=== PATIENT | female | born 1970 | race Caucasian/White ===

== ENCOUNTER 2024-12-04 10:29 | Emergency (ER) | payer OTHER, SELFPAY ==
[2024-12-04] VITALS (7 sets, daily range): BP systolic 107–138; BP diastolic 69–85
--- NOTE | 2024-12-04 11:57 | ED.GENMED ---
History of Present Illness
<MIKAYLA Rojas - Last Filed: 12/04/24 16:55>
General
Chief Complaint: Chest Pain
Source: patient
Exam Limitations: none
Time Seen by Provider: 12/04/24 11:41
Nursing documentation reviewed up to this point in time: agreed with
History of Present Illness
History of Present Illness:
54 yr old female with past medical history of none obstructive (vasospasm PR ) presents to the ER for evaluation. She reports for the past 1 week she has had intermittent left-sided chest discomfort. She reports it has been lasting for seconds at
a time. She has had no radiation of pain no nausea vomiting diaphoresis. It resolves on its own. Today however it has been constant since 830 this morning. She reports pain is again of the left side of her chest but she describes this as '
feeling hot sensation .' She does feel some discomfort in left arm
She has not taken anything for pain.
This does not feel similar to when she had her PR in the past. She reports pain is not made worse with deep breath. She denies any recent illness fever chills. She denies any reflux history.
She is followed with cardiology Dr. Torres here.
Past History
<MIKAYLA Rojas - Last Filed: 12/04/24 16:55>
Past History
ED Past Medical History: None
ED Past Surgical History: None
Review of Systems
<MIKAYLA Rojas - Last Filed: 12/04/24 16:55>
Review of Systems
Allergies reviewed?: Yes
All Other Systems: ROS reviewed and negative except as documented in HPI and ROS
Constitutional: Reports no symptoms; Denies fever, fatigue or chills
EENT: Reports no symptoms
Respiratory: Reports no symptoms
Cardiac: Reports chest pain; Denies diaphoresis, palpitations or syncope
ABD/GI: Reports no symptoms
: Reports no symptoms
Musculoskeletal: Reports no symptoms
Skin: Reports no symptoms
Neurological: Reports no symptoms
Psychiatric: Reports no symptoms
Phy Exam
<MIKAYLA Rojas - Last Filed: 12/04/24 16:55>
General Physical Exam
General Presentation: no apparent distress
General age: appears stated age
General Skin: warm and dry
General Habitus: normal
General Mental: alert
General Hydration: appears well hydrated
Cardiovascular Exam
Cardiovascular Exam: regular rate/rhythm, no murmur and normal peripheral pulses
Pulmonary Exam
Pulmonary Exam: lungs clear and no respiratory distress
Neurological Exam
Neurological Exam: alert and oriented x3
Musculoskeletal Exam
Musculoskeletal Exam: full ROM
Skin Exam
Skin Exam: normal color and warm/dry
Psychiatric Exam
Psychiatric Exam: normal mood/affect
Scores
<MIKAYLA Rojas - Last Filed: 12/04/24 16:55>
Heart Score for Chest Pain Patients
STEMI patient?: Not applicable
Course
<MIKAYLA Rojas - Last Filed: 12/04/24 16:55>
Orders/Labs/Results
Orders:
Orders
12/04/24 10:30
Electrocardiogram (*1) Urgent
Reason for Study: Chest Pain
EKG- Treatment ONCE
12/04/24 11:58
Cardiac Monitoring- Treatment ONCE
Chest [CR Chest - 2 Views ] Urgent
Comment:
Reason For Exam: cp
12/04/24 12:07
Ketorolac [Toradol] 15 mg IV NOW STA
12/04/24 12:22
Complete Blood Count/With Diff Urgent
Comprehensive Metabolic Panel Urgent
Troponin I Urgent
12/04/24 13:24
CT Chest Angio W/wo Iv Contras Urgent
Comment:
Reason For Exam: left chest
12/04/24 15:25
Troponin I Urgent
12/04/24 15:26
Electrocardiogram (*1) Urgent
Reason for Study: Chest Pain
EKG- Treatment ONCE
12/04/24 12:22
12/04/24 12:22
Vital Signs
Initial and Last Documented VS:
Initial Vital Signs
Temp Pulse Resp BP Pulse Ox
98.4 F 71 16 138/85 98
12/04/24 10:34 12/04/24 10:34 12/04/24 10:34 12/04/24 10:34 12/04/24 10:34
Last Documented Vital Signs
Temp Pulse Resp BP Pulse Ox
98.4 F 60 18 107/69 100
12/04/24 10:34 12/04/24 15:15 12/04/24 15:15 12/04/24 15:00 12/04/24 13:15
Building Service Worker consulted with Physician
Building Service Worker consulted with physician?: Yes
Name of Physician Consulted: Andrae
<Eli Abebe, DO - Last Filed: 12/04/24 13:39>
Orders/Labs/Results
Orders:
Orders
12/04/24 10:30
Electrocardiogram (*1) Urgent
Reason for Study: Chest Pain
EKG- Treatment ONCE
12/04/24 11:58
Cardiac Monitoring- Treatment ONCE
Chest [CR Chest - 2 Views ] Urgent
Comment:
Reason For Exam: cp
12/04/24 12:07
Ketorolac [Toradol] 15 mg IV NOW STA
12/04/24 12:22
Complete Blood Count/With Diff Urgent
Comprehensive Metabolic Panel Urgent
Troponin I Urgent
12/04/24 13:24
CT Chest Angio W/wo Iv Contras Urgent
Comment:
Reason For Exam: left chest
12/04/24 15:25
Troponin I Urgent
12/04/24 15:26
Electrocardiogram (*1) Urgent
Reason for Study: Chest Pain
EKG- Treatment ONCE
12/04/24 12:22
12/04/24 12:22
Vital Signs
Initial and Last Documented VS:
Initial Vital Signs
Temp Pulse Resp BP Pulse Ox
98.4 F 71 16 138/85 98
12/04/24 10:34 12/04/24 10:34 12/04/24 10:34 12/04/24 10:34 12/04/24 10:34
Last Documented Vital Signs
Temp Pulse Resp BP Pulse Ox
98.4 F 60 18 107/69 100
12/04/24 10:34 12/04/24 15:15 12/04/24 15:15 12/04/24 15:00 12/04/24 13:15
<MIKAYLA Rojas - Last Filed: 12/04/24 16:55>
MDM/Problems Addressed
MDM/Problems Addressed:
As documented patient is a 54-year-old female with history of vasoconstrictive PR presented to the ER for evaluation of chest pain patient. She reports intermittently for the past week she has had episodes of chest pain which last for seconds at a
time however today she had persistent discomfort which she described as burning which prompted patient to come to the ER.
She reports that this is different than her previous PR. Patient had 1 negative cardiac troponin here however on reeval patient still complained of discomfort repeat troponin done as well as CTA which was negative no concerning findings during
workup here in the ER.
She denies any fevers and has no rash on exam no clear cause for patient's symptoms however nothing acute and stable for discharge home with close outpatient with cardiology/PCP
Chronic conditions affecting care:
Previous vasoconstrictive PR hyperlipidemia
<MIKAYLA Rojas - Last Filed: 12/04/24 16:55>
*Pulse Oximetry
Patient hypoxic: no
*Critical Care Note
Total Time (30-74mins, 75-104mins- exclusive of procedures): Not Applicable
ED Attending Note
<MIKAYLA Rojas - Last Filed: 12/04/24 16:55>
-
Portions of this chart may have been created with voice recognition software.� Occasional wrong word or��sound alike� substitutions may have occurred due to the inherent limitations of voice recognition software.
<Eli Abebe DO - Last Filed: 12/04/24 13:39>
ED Attending Note
Patient seen and examined by attending physician: Yes
I performed the substantive portion of visit, reviewed & personally made and approve the management plan that is documented in note by myself or ASUTIN.: Yes
I performed a history and physical exam of patient and discussed management with resident, I reviewed resident's note and agree with documented findings and plan of care.: Yes
ED Attending Note:
54-year-old female with history of hypertension, coronary vasospasm presenting to the emergency department for chest discomfort. Patient reports symptoms on and off for the past week, however became more persistent in the past 2 days. Pain is
described as burning, left chest and going to her back. Reports that symptoms feel different than her prior cardiac event. Denies any history of indigestion. Denies difficulty breathing. Denies any history of PE, exogenous estrogen, recent
surgery or travel. Vitals on arrival are normal.
On exam, patient is resting comfortably, no acute distress. EKG obtained, without significant acute ischemic abnormality or significant change from prior. Unremarkable cardiac and pulmonary exam. Patient had initial workup with laboratory
analysis including troponin. Initial troponin is negative, however patient continues to express discomfort in her chest. For this reason we will obtain second troponin. Patient notes that pain is radiating to her back. For this reason we will
obtain CT chest imaging as well to evaluate for aortic or pulmonary pathology. Patient otherwise hemodynamically stable.
Discharge Plan
Departure
Patient Disposition: Home (Routine Discharge)
Date of Disposition: 12/04/24
Time of Disposition: 16:53
Patient with high blood pressure during this ER visit?: Yes
Covid-19: Not Applicable
Discharge Problem:
Chest pain
Instructions: Chest Pain DCA Follow Up, BLOOD PRESSURE
Prescriptions:
No Action
prenat.vits,loly,jym-gxoi-zhtoz [ Vitamin] 1 TAB tablet
1 tab PO
Referrals:
Angeles Fatima PA-C [Family Provider] -
Sumanth Robles MD [Active] -
Activity Restrictions/Additional Instructions:
As discussed please follow-up with cardiology you should receive a phone call from the office in the next 4 days if you do not please give them a call. You may take ibuprofen for discomfort or alternate with Tylenol. In addition please follow
with your family doctor.
Interventions
Interventions:
*Risk Screen - Suicide Last Done: 12/04/24 10:34
*General Assessment Last Done: 12/04/24 12:28
*Neglect/Abuse Screening Last Done: 12/04/24 10:34
*ED- Fall Risk Assessment Last Done: 12/04/24 12:28
ED- Cardiac Assessment Last Done: 12/04/24 12:27
Discharge Date and Time
Print Language: AZERI
[2024-12-04] MEDS: TORADOL 15 MG IV (12:22)
[2024-12-04 12:32] LABS: % Basophils 0.5 % (0-2); % Eosinophils 0.7 % (0-6); % Immature Granulocytes 0.1 % (0-0.5); % Lymphocytes 21.8 % (20.5-51.1); % Monocytes 4.3 % (1.7-9.3); % Neutrophils 72.6 % (42.2-75.2); Absolute Eosinophils 0.1 10^3/uL (0-0.7); Absolute Lymphocytes 1.6 10^3/uL (1.2-3.4); Absolute Monocytes 0.3 10^3/uL (0.1-0.6); Absolute Neutrophils 5.5 10^3/uL (1.4-6.5); Hematocrit 39.5 % (37.0-47.0); Hemoglobin 13.2 g/dL (12.0-16.0); Mean Corp Hgb Conc. 33.4 g/dL (33.0-37.0); Mean Corpuscular Hgb 30.2 pg (27.0-31.0); Mean Corpuscular Volume 90.4 fL (81.0-99.0); Mean Platelet Volume 9.6 fL (7.4-10.4); Nucleated Red Blood Cells % 0 %; Platelet Count 271 10^3/uL (130-400); Red Blood Cell Count 4.37 10^6/uL (4.20-5.40); Red Cell Dist. Width 13.2 % (11.5-14.5); White Blood Cell Count 7.5 10^3/uL (4.8-10.8)
[2024-12-04 12:45] LABS: ALT (SGPT) 22 U/L (0-35); AST (SGOT) 26 U/L (14-36); Albumin 4.6 g/dl (3.5-5.0); Alkaline Phosphatase 59 U/L (38-126); Blood Urea Nitrogen 15 mg/dl (7-17); Calcium 9.9 mg/dl (8.4-10.2); Carbon Dioxide 29 mmol/L (22-30); Chloride 105 mmol/L (98-107); Glucose 96 mg/dl (70-99); Sodium 141 mmol/L (135-145); Total Bilirubin 1.1 mg/dl (0.2-1.3); Total Protein 7.3 g/dl (6.3-8.2); eGFR > 60.00
[2024-12-04 12:59] LABS: Troponin I < 0.012 ng/ml
[2024-12-04 15:54] LABS: Troponin I < 0.012 ng/ml
== END 2024-12-04 17:35 | disposition home or self-care (01) ==
LOC: EMR 10:29
PROVIDERS: Nurse Practitioner; EMERGENCY PHYSICIAN Student in an Organized Health Care Education/Training Program; FAMILY PHYSICIAN Student in an Organized Health Care Education/Training Program
DX: R07.89 Other chest pain (principal); I25.2 Old myocardial infarction; E78.5 Hyperlipidemia, unspecified; I10 Essential (primary) hypertension
CPT/HCPCS: 99285; 96374; 71046; 71275; 80053; 84484; 85025; 93005; Q9967

== ENCOUNTER → 2024-12-09 09:52 | Outpatient (REF) | payer OTHER, SELFPAY | LOC: HWRAD 09:52 | PROVIDERS: ATTENDING PHYSICIAN Student in an Organized Health Care Education/Training Program | DX: E04.9 Nontoxic goiter, unspecified (principal) | CPT/HCPCS: 76536 ==

== ENCOUNTER 2024-12-18 01:20 | Observation (INO) | payer OTHER, SELFPAY ==
[2024-12-17] VITALS (7 sets, daily range): BP systolic 110–139; BP diastolic 73–87; BMI 23.7
[2024-12-17 16:08] LABS: Urine Albumin 1+ (Neg - Trace); Urine Bilirubin Negative (Negative); Urine Character Clear (Clear); Urine Color Yellow; Urine Glucose Negative (Negative); Urine Ketone Negative (Negative); Urine Leukocyte 1+ (Negative); Urine Nitrite Negative (Negative); Urine Occult Blood 4+ (Negative); Urine Urobilinogen Negative (Neg - 1+)
[2024-12-17 16:27] LABS: Urine Bacteria Few (Negative); Urine Mucus Few; Urine Squamous Cell 0-2 /LPF (Few)
[2024-12-17 19:41] LABS: % Basophils 0.6 % (0-2); % Eosinophils 2.7 % (0-6); % Immature Granulocytes 0.2 % (0-0.5); % Lymphocytes 39.1 % (20.5-51.1); % Monocytes 7.2 % (1.7-9.3); % Neutrophils 50.2 % (42.2-75.2); Absolute Eosinophils 0.2 10^3/uL (0-0.7); Absolute Lymphocytes 2.6 10^3/uL (1.2-3.4); Absolute Monocytes 0.5 10^3/uL (0.1-0.6); Absolute Neutrophils 3.3 10^3/uL (1.4-6.5); Hematocrit 37.2 % (37.0-47.0); Hemoglobin 12.8 g/dL (12.0-16.0); Mean Corp Hgb Conc. 34.4 g/dL (33.0-37.0); Mean Corpuscular Hgb 30.7 pg (27.0-31.0); Mean Corpuscular Volume 89.2 fL (81.0-99.0); Mean Platelet Volume 9.5 fL (7.4-10.4); Nucleated Red Blood Cells % 0 %; Platelet Count 234 10^3/uL (130-400); Red Blood Cell Count 4.17 10^6/uL (4.20-5.40); Red Cell Dist. Width 13.3 % (11.5-14.5); White Blood Cell Count 6.6 10^3/uL (4.8-10.8)
[2024-12-17 19:56] LABS: ALT (SGPT) 15 U/L (0-35); AST (SGOT) 18 U/L (14-36); Alkaline Phosphatase 54 U/L (38-126); Blood Urea Nitrogen 23 mg/dl (7-17); Calcium 9.2 mg/dl (8.4-10.2); Carbon Dioxide 28 mmol/L (22-30); Chloride 106 mmol/L (98-107); Estimated Creatinine Clearance 89 ml/min; Glucose 104 mg/dl (70-99); Lipase 115 U/L (23-300); Potassium 3.8 mmol/L (3.5-5.1); Sodium 139 mmol/L (135-145); Total Bilirubin 0.4 mg/dl (0.2-1.3); Total Protein 6.4 g/dl (6.3-8.2); eGFR > 60.00
[2024-12-17 20:08] LABS: Troponin I < 0.012 ng/ml
[2024-12-17 20:12] LABS: HCG, Serum Qualitative Screen Positive
--- NOTE | 2024-12-17 20:20 | ED.GENMED ---
History of Present Illness
General
Chief Complaint: Fatigue
Source: patient
Time Seen by Provider: 12/17/24 20:06
History of Present Illness
History of Present Illness:
54-year-old female who is postmenopausal presents to the emergency room complaining of paresthesias involving her right side. Patient developed these symptoms last evening while laying in bed. She has a sensation like the right arm and leg are
'going to sleep'. She has normal strength and is able to perform all her daily activities. She denies any headache. She denies any recent fever, chills, nausea or vomiting. Symptoms have been pretty constant since onset. She did recently take a
course of prednisone prescribed her primary care doctor. This was prescribed because she was having intermittent chest discomfort and there was the thought she might be having an inflammatory process. She has completed the prednisone.
Past History
Past History
ED Past Medical History: None
ED Past Surgical History: None
Phy Exam
Physical Exam
Physical Exam:
General: Awake, Alert, Oriented X3. No acute distress.
Vitals: unremarkable
Head: Atraumatic
Eyes: Pupils equal, EOMI
Throat: Airway intact, no exudates
Neck: Trachea midline
Lungs: Clear and equal b/l
Heart: Regular rate, no murmurs
Abd: Soft, Nontender, No pulsatile mass
Neuro: Cranial nerves intact, muscle strength equal bilaterally, cerebellar exam normal, reflexes 1/4 throughout
Skin: Warm, dry, no rash
Extremities: pulses equal b/l, no edema
Course
Orders/Labs/Results
Orders:
Orders
12/17/24 15:52
Electrocardiogram (*1) Urgent
Reason for Study: Chest Pain
EKG- Treatment ONCE
Test Result ONCE
12/17/24 15:59
Urinalysis Reflex To Culture Urgent
Date Specimen was Collected: 12/17/24
Time Specimen was Collected: 15:52
Urine Microscopic Reflex Cult Urgent
Urine Culture Urgent
TIRSO Source: U
Specimen Description:
Date Specimen was Collected: 12/17/24
Time Specimen was Collected: 15:52
12/17/24 19:31
Beta HCG Quantitative Urgent
Comment: ADD ON
Complete Blood Count/With Diff Urgent
Comprehensive Metabolic Panel Urgent
HCG, Serum Qualitative Screen Urgent
Comment: Notify provider if positive test present
Lipase Urgent
Lyme Progressive Urgent
Date Specimen was Collected: 12/17/24
Time Specimen was Collected: 15:52
Comment: ADDON
Troponin I Urgent
12/17/24 20:19
Add On- LAB Urgent
Tests Added?: hcg quantitative
12/17/24 20:20
CT Head W/o Iv Contrast Urgent
Comment:
Reason For Exam: right sided paresthesia
12/17/24 20:21
Add On- LAB Urgent
Tests Added?: lyme progressive
12/17/24 22:59
Admit/Transfer Patient As Directed
Co-Sign Provider:
Level of Care: Observation services
Assign to:: Telemetry
Physician / Group: maura
Diagnosis: TIA
Reason for Telemetry: CVA/TIA
Date to Stop Telemetry: 12/20/24
Time to Stop Telemetry: 11:00
PRN Pain Medication Management As Directed
May give lesser potent ordered pain med per pt: Yes
preference::
Protocol:: Medication orders for pain may be administered in a
manner that supports deferring to patient preference
when the pt is:
- Requesting an ordered lesser potent pain medication.
Least to most potent pain medications are defined
as: acetaminophen < NSAID < tramadol < opioids
(morphine, oxycodone, hydromorphone).
- Requesting a lesser dose of the same medication IF
ORDERED.
- Requesting a less intrusive route of administration
if both routes are prescribed by the provider (PO <
IV).
12/17/24 23:00
Code Status As Directed
Resuscitation Status: Full Code
Flush (0.9% Sodium Chloride) [Flush (Nss)] See Dose Instructions IV PER PROTOCOL
12/17/24 23:05
Aspirin Chewable [Low Strength Aspirin] 324 mg PO NOW STA
Clopidogrel Bisulfate [Plavix] 75 mg PO NOW STA
12/17/24 23:20
MR Brain Without Contrast Routine
Comment:
Reason For Exam: paresthisas
Recent pill cam endoscopy?: No
12/18/24 01:22
Troponin I Q6H
12/18/24 07:30
Troponin I Q6H
12/20/24 11:00
DC Protocol for Telemetry ONCE
Abnormal Lab Results
12/17/24 12/17/24
15:59 19:31
RBC 4.17 L 10^6/uL
(4.20-5.40)
BUN 23 H mg/dl
(7-17)
Glucose 104 H mg/dl
(70-99)
Ur Occult Blood Reflex 4+ A
(Negative)
Leukocyte Esterase Rfl 1+ A
(Negative)
Urine RBC 11-15 A /HPF
(0-2)
Urine Bacteria (Reflex) Few A
(Negative)
Urine Albumin (Reflex) 1+ A
(Neg - Trace)
12/17/24 19:31
12/17/24 19:31
Vital Signs
Initial and Last Documented VS:
Initial Vital Signs
Temp Pulse Resp BP Pulse Ox
98.5 F 77 16 139/87 99
12/17/24 15:50 12/17/24 15:50 12/17/24 15:50 12/17/24 15:50 12/17/24 15:50
Last Documented Vital Signs
Temp Pulse Resp BP Pulse Ox
98.5 F 71 20 110/74 98
12/17/24 15:50 12/17/24 23:15 12/17/24 23:15 12/17/24 23:00 12/17/24 19:55
MDM/Problems Addressed
Differential Diagnosis Includes:
CVA, lyme, MS, electrolyte abn
MDM/Problems Addressed:
54-year-old female presents with right sided paresthesias. Her neurologic exam is otherwise intact. Workup here does not reveal an obvious cause. Case discussed with neurology who recommends hospitalization for further neurologic workup. Patient
given a dose of aspirin and Plavix here. EKG shows sinus rhythm. Interestingly the patient's screening test was positive. Quant was sent which shows a very low level of 3.7. Recommend repeating this test in 2 weeks. Unlikely to be a
clinically significant finding.
*Radiology
Radiology exam reviewed: radiology read reviewed
*Pulse Oximetry
Patient hypoxic: no
*EKG
Interpretation: normal
Heart Rate: 64
Rate: normal
Rhythm: sinus
[place]: normal axis
Interval: normal interval
QRS Pattern: normal QRS
Ischemia: no ischemia
*Shuttle Veneering Supervisor Interpretation
Rate: normal
Interpretation: normal
Rhythm: sinus
*Critical Care Note
Total Time (30-74mins, 75-104mins- exclusive of procedures): Not Applicable
ED Attending Note
-
Portions of this chart may have been created with voice recognition software.� Occasional wrong word or��sound alike� substitutions may have occurred due to the inherent limitations of voice recognition software.
Discharge Plan
Departure
Patient Disposition: Admit
Date of Disposition: 12/17/24
Time of Disposition: 23:05
Presentation/result/management discussed w/ accepting MD/DO: Hospitalist
Condition: Fair
Discharge Problem:
right sided paresthesia
Interventions
Interventions:
*Risk Screen - Suicide Last Done: 12/17/24 15:50
*General Assessment Last Done: 12/17/24 19:29
*Neglect/Abuse Screening Last Done: 12/17/24 15:50
*ED- Fall Risk Assessment Last Done: 12/17/24 19:29
*ED COVID-19 Vaccine History Last Done: 12/17/24 19:29
[2024-12-17 20:46] LABS: Beta HCG Quantitative 3.72 mIU/ml
--- NOTE | 2024-12-17 22:42 | HPS.HSE ---
Addendum entered and electronically signed by Jorge Ortiz DO 12/17/24 23:39:
Patient seen and examined independently. Agree with findings and plan as set forth by MIKAYLA Wiseman.
Patient is a 54y F with PMH significant for hypertension and prior IN (? vasospasm) who presents to ED complaining of R sided numbness and tingling. Patient states that symptoms started last PM and have persisted since that time. She denies any
headache, vision changes, weakness or ataxia. Patient states that she had similar symptoms 2-3 nights ago - but this was very brief and resolved spontaneously. Patient otherwise denies any prior h/o similar symptoms.
She was seen in the ED here on 12/04 with complaints of L sided chest pain. Eval at that time including serial troponin, EKG and CTA chest was completely unremarkable.
Ass:
Right-Sided Paresthesias
Chest Pain
h/o Coronary Vasospasm
Thyroid Nodule
Abnormal HCG
Plan:
Observe overnight for further evaluation and treatment.
DAPT for now. Neurology eval / MRI brain in AM.
Follow for any new / worsening symptoms.
Trop remains undetectable and EKG unremarkable.
Continue current CV med regimen and follow for changes in symptoms.
Follow-up thyroid nodule as an outpatient.
Repeat HCG in about 2 weeks and follow-up with EMERGENCY MEDICINE.
Original Note:
Family Physician
-
Family Physician: Angeles Fatima PA-C
Chief Complaint
-
numbness and tingling
History of Present Illness
54-year-old female with PMH for HTN, HLD presented to us with right UE and LE tingling, numbness since last night. she also noticed it on her left arm and on the throat intermittently. patient complained of left sided chest pain for past few weeks.
she was evaluated in the ER, cardiology office with negative work ups. she finished the course of prednisone. denied SAPP, dizzy or syncope. denied fever, chills, sob. denied congestion and cough. denied abdominal pain,n,v,d. denied dysuria or
hematuria.
admitting for further management.
Medical History
Past Medical History
Past Medical History: Reports Other
Additional Past Medical History:
NSTEMI
HLD
Past Surgical History: Reports None
Social History
Tobacco: Smoker (5 cigarettes' daily)
Alcohol: Occasional
Drug: None
Personal:
Living: With Family
Employment: Employed
Family History
Family History: Not pertinent
Allergies / Home Medications
Allergies reflects when Allergies were last updated in [facility].
Home Medications with original date entered in [facility]
Allergy/Medication List:
Allergies
Allergy/AdvReac Type Severity Reaction Status Date / Time
NKA - No Known Allergies Allergy Unknown Uncoded 12/17/24 19:34
Home Medications
amlodipine 2.5 mg tablet 2.5 mg PO DAILY 12/17/24
aspirin 81 mg tablet 81 mg PO DAILY 12/17/24
atorvastatin 40 mg tablet 40 mg PO DAILY 12/17/24
Review of Systems
-
Constitutional: Reports No Symptoms
EENT: Reports No Symptoms
Respiratory: Reports No Symptoms
Cardiac: Reports Chest Pain
Abdomen/GI: Reports No Symptoms
: Reports No Symptoms
Musculoskeletal: Reports No Symptoms
Skin: Reports No Symptoms
Neurological: Reports Other (numbness, tingling)
Endocrine: Reports No Symptoms
Hematologic/Lymphatic: Reports No Symptoms
Psych: Reports No Symptoms
Physical Exam
Vital Signs
Vital Signs
Temp Pulse Resp BP Pulse Ox
98.5 F 71 20 110/73 98
12/17/24 15:50 12/17/24 20:45 12/17/24 20:45 12/17/24 20:00 12/17/24 19:55
Physical Exam
General: Well Developed, Well Nourished and No Apparent Distress
HEENT: NormoCephalic, Moist mucous membranes and Atraumatic
Respiratory: Clear
Cardiac: S1/S2 and Regular Rhythm; No Murmur or Rub
GI: Soft, Non Tender, Non Distended and Normal Bowel Sounds; No Organomegaly
Rectal: Deferred by Provider
Musculoskeletal: No Clubbing, No Cyanosis and No Edema
Skin: No Rash
Neuro: AO x 3 and Nonfocal/grossly intact
Psych: Calm
Laboratory Results
-
12/17/24 19:31
12/17/24 19:31
Laboratory Results
Total Bilirubin 0.4 mg/dl (0.2-1.3) 12/17/24 19:31
AST 18 U/L (14-36) 12/17/24 19:31
ALT 15 U/L (0-35) 12/17/24 19:31
Alkaline Phosphatase 54 U/L (38-126) 12/17/24 19:31
Troponin I < 0.012 ng/ml 12/17/24 19:31
Lipase 115 U/L (23-300) 12/17/24 19:31
Data Reviewed
-
CT Scan: Report Reviewed by me
Lab Data: Labs Reviewed by me
Impression/Plan
-
#right sided paresthesias likely acute CVA
-asa and Plavix
-head CT negative
-defer MRI to neurology
-statin
-pt/OT consult
-neurology consulted
#left sided chest pain unclear cause
-finished the course of prednisone
-trop negative
-continue to trend trop
#positive hcg
-patient is post menopausal
-as per EMERGENCY MEDICINE repeat HCG in two weeks.
#essential HTN
-Norvasc continued with hold parameter
#DVT Prophylaxis
-scd
#CODE status
-full code
[2024-12-17] MEDS: LOW STRENGTH ASPIRIN 324 MG PO (23:13)
[2024-12-17] MEDS: PLAVIX 75 MG PO (23:13)
[2024-12-18] VITALS (8 sets, daily range): BP systolic 91–124; BP diastolic 50–77; PULSE 56–69; O2SAT 99–100
[2024-12-18 01:53] LABS: Troponin I < 0.012 ng/ml
--- NOTE | 2024-12-18 03:27 | DOWNTIME ---
There was a [employer] Client Gym Teacher Downtime on 12/18/2024 from 0200 to 12/19/2023 at 0318 . Downtime documentation of patient's care, including medication administrations, has been reconciled in the electronic record per guidelines. Refer to the
patient's paper chart under the miscellaneous tab to see printed paper medication records and downtime forms.
--- NOTE | 2024-12-18 03:30 | DOWNTIME ---
There was a [employer] Client Squaring Shear Operator Downtime on 12/18/2024 from 0200 to 12/19/2023 at 0318 . Downtime documentation of patient's care, including medication administrations, has been reconciled in the electronic record per guidelines. Refer to the
patient's paper chart under the miscellaneous tab to see printed paper medication records and downtime forms.
[2024-12-18 07:02] LABS: HDL Cholesterol 69 mg/dl; LDL Cholesterol, Calculated 58 mg/dl; Total Cholesterol 136 mg/dl (50-199); Triglyceride 45 mg/dl (10-149); Very Low Density Lipoprotein 9 mg/dl (0-30)
[2024-12-18 07:14] LABS: Troponin I < 0.012 ng/ml
--- NOTE | 2024-12-18 07:31 | CON.NEURO ---
Consultation
Order
Date of Consultation: 12/18/24
Requesting Provider: Vernell Garza CRNP
Reason for Consult: TIA
Neurology Consultation Note.
HPI:This is a 54 year old woman who presented to [facility] on 12/17/2024 with sensory symptoms.
Ms. Spangler endorses an acute paresthesias affecting her right arm and leg, with occasional involvement of the left arm and neck that started on December 16, 2024. The patient describes the sensation as worst when lying flat, extending to the face and
right side of the face. Standing provides some relief, but the tingling persists. The patient denies any associated weakness. Prior to the onset of the current symptoms, the patient experienced some tingling a few days earlier that resolved while on
prednisone, which was prescribed for possible inflammation related to the chest discomfort that she was seen in the ER on December 04, 2024.
No reports of motor, visual deficits, change in gait or similar episodes in the past
The patient contacted her PCP, who advised her to go to the ER.
ER VS:139/87, 59, afebrile.
EKG: NSR, QTc Int : 408 ms
PDMP:none
Labs:gluc 104, LDL 58
Braijn MRI wo priyank-Chiari I malformation.
PMH: HTN, DLP,
PSH:none
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
FH: No family history of stroke
All:NKDA
ROS: Constitutional: Negative. Negative for chills, fever and unexpected weight change.
HENT: Negative for ear pain, hearing loss, tinnitus and trouble swallowing.
Eyes: Negative. Negative for photophobia, pain and visual disturbance.
Respiratory: Negative for cough, choking and shortness of breath.
Cardiovascular: Negative for chest pain, palpitations and leg swelling.
Gastrointestinal: Negative for abdominal pain and vomiting.
Endocrine: Negative. Negative for cold intolerance.
Genitourinary: Negative for dysuria, flank pain and urgency.
Musculoskeletal: Negative for back pain, gait problem, neck pain and neck stiffness.
Skin: Negative for rash.
Allergic/Immunologic: Negative. Negative for immunocompromised state.
Neurological: Positive for numbness, negative for headache
Psychiatric/Behavioral: Negative for behavioral problems, confusion and hallucinations.
General: Well developed. In no acute distress.
Cardio: Regular rate and rhythm without murmur. Extremities are without cyanosis or edema.
Neuro:
Mental Status: Alert, oriented to person, place, and date. Normal attention and recall. Good fund of knowledge. Follows complex requests across the midline. Comprehension, naming, and repetition intact.
Cranial Nerves: Pupils are equally round and reactive to light. EOMs full. Visual cabello full to confrontation. No ptosis. No nystagmus. V1-V3 intact to light touch and pinprick bilaterally, symmetric. Face symmetric. Normal hearing AU. The
palate elevated well. SCMs and traps 5/5. Tongue midline. No dysarthria.
Motor: Normal bulk and tone. No pronator or arm drift. Strength 5/5 throughout. No clonus.
Reflexes: 2+ throughout the upper extremities and knees. 2/2 in AJs. Plantar responses flexor bilaterally. Negative Javier's bilaterally.
Sensory: Normal pinprick, vibration and JPS.
Coordination: No dysmetria or tremor.
Gait: deferred
Assessment and Plan:
I. Sensory symptoms. No evidence of myelopathy on neuroexam
II. Chiari I malformation, asymptomatic.
III. DLP
- Avoid heavy lifting or straining.
- Continue ASA 81 mg QD and Lipitor
- Outpatient C-spine MRI without priyank
- Please check vitamin B12, folate, thiamine level
- Outpatient neurology follow-up
I personally reviewed all radiology and labs along with past medical records pertinent to current medical problems. Total time spent in patient care is 60 minutes.
Thank you for allowing us to participate in the care of this patient. We will continue to follow. Please do not hesitate to contact us with any questions or concerns.
Subjective/Objective
Subjective Data
Date of Service: December 18, 2024
Objective Data
Vital Signs
Temp Pulse Resp BP Pulse Ox
36.9 C 56 14 91/74 98
12/17/24 15:50 12/18/24 06:00 12/18/24 06:00 12/18/24 06:00 12/17/24 19:55
Lab Results
12/17/24 19:31
12/17/24 19:31
Sodium 139 mmol/L (135-145) 12/17/24 19:31
Potassium 3.8 mmol/L (3.5-5.1) 12/17/24 19:31
BUN 23 mg/dl (7-17) H 12/17/24 19:31
Glucose 104 mg/dl (70-99) H 12/17/24 19:31
Calcium 9.2 mg/dl (8.4-10.2) 12/17/24 19:31
LDL Cholesterol, Calc 58 mg/dl 12/18/24 06:28
Patient Allergies
NKA - No Known Allergies Allergy (Uncoded 12/17/24 19:34)
Unknown
Medications
-
Active Medications
Generic Name Dose Route Start Last Admin
Trade Name Freq PRN Reason Stop Dose Admin
Acetaminophen 650 mg 12/18/24 01:40
Acetaminophen 650 Mg Rectal Suppository RECTAL 01/15/25 01:39
Q4HPRN PRN
SAPP, mild pain, or temp >100.4F
Acetaminophen 650 mg 12/18/24 01:40
Acetaminophen 325 Mg Tablet PO 01/15/25 01:39
Q4HPRN PRN
SAPP, mild pain, or temp >100.4F
Amlodipine Besylate 2.5 mg 12/18/24 08:00
Amlodipine 2.5 Mg Tablet PO 01/15/25 07:59
DAILY LOUIS
Aspirin 81 mg 12/18/24 08:00
Aspirin 81 Mg (Enteric Coated) Tablet PO 01/15/25 07:59
DAILY LOUIS
Atorvastatin Calcium 40 mg 12/18/24 08:00
Atorvastatin (Lipitor) 40 Mg Tablet PO 01/15/25 07:59
DAILY LOUIS
Clopidogrel Bisulfate 75 mg 12/18/24 08:00
Clopidogrel 75 Mg Tablet PO 01/15/25 07:59
DAILY LOUIS
Sodium Chloride 0 flush 12/17/24 23:00
Sodium Chloride 0.9% (Flush) Syringe IV 01/14/25 22:59
PER PROTOCOL LOUIS
Home Medications
�Medication �Instructions �Recorded
amlodipine 2.5 mg tablet 2.5 mg PO DAILY 12/17/24
aspirin 81 mg tablet 81 mg PO DAILY 12/17/24
atorvastatin 40 mg tablet 40 mg PO DAILY 12/17/24
Vital Signs and Labs
-
Vital Signs and Labs:
Vital Signs
Temp Pulse Resp BP Pulse Ox
37.1 C 58 17 115/75 99
12/18/24 08:19 12/18/24 08:19 12/18/24 08:19 12/18/24 08:19 12/18/24 08:19
Lab Results
12/17/24 19:31
12/17/24 19:31
Sodium 139 mmol/L (135-145) 12/17/24 19:31
Potassium 3.8 mmol/L (3.5-5.1) 12/17/24 19:31
BUN 23 mg/dl (7-17) H 12/17/24 19:31
Glucose 104 mg/dl (70-99) H 12/17/24 19:31
Calcium 9.2 mg/dl (8.4-10.2) 12/17/24 19:31
LDL Cholesterol, Calc 58 mg/dl 12/18/24 06:28
Medications
-
Medications:
Generic Name Dose Route Start Last Admin
Trade Name Freq PRN Reason Stop Dose Admin
Acetaminophen 650 mg 12/18/24 01:40
Acetaminophen 650 Mg Rectal Suppository RECTAL 01/15/25 01:39
Q4HPRN PRN
SAPP, mild pain, or temp >100.4F
Acetaminophen 650 mg 12/18/24 01:40
Acetaminophen 325 Mg Tablet PO 01/15/25 01:39
Q4HPRN PRN
SAPP, mild pain, or temp >100.4F
Amlodipine Besylate 2.5 mg 12/18/24 08:00
Amlodipine 2.5 Mg Tablet PO 01/15/25 07:59
DAILY LOUIS
Aspirin 81 mg 12/18/24 08:00
Aspirin 81 Mg (Enteric Coated) Tablet PO 01/15/25 07:59
DAILY LOUIS
Atorvastatin Calcium 40 mg 12/18/24 08:00
Atorvastatin (Lipitor) 40 Mg Tablet PO 01/15/25 07:59
DAILY LOUIS
Clopidogrel Bisulfate 75 mg 12/18/24 08:00
Clopidogrel 75 Mg Tablet PO 01/15/25 07:59
DAILY LOUIS
Sodium Chloride 0 flush 12/17/24 23:00
Sodium Chloride 0.9% (Flush) Syringe IV 01/14/25 22:59
PER PROTOCOL LOUIS
Home Medications
-
Home Medications
amlodipine 2.5 mg tablet 2.5 mg PO DAILY 12/17/24
aspirin 81 mg tablet 81 mg PO DAILY 12/17/24
atorvastatin 40 mg tablet 40 mg PO DAILY 12/17/24
--- NOTE | 2024-12-18 09:15 | W.PN.HOSP.TC ---
Today's Communication/Plan
-
Ongoing neurologic workup
Assessment / Plan
Assessment / Plan
Impression:
Resistant right-sided paresthesia
Elevated beta-hCG in postmenopausal woman
Thyroid nodule with normal TFTs
Conditions prior to admission:
Episode of chest discomfort with unrevealing workup treated with prednisone taper recently
Non-STEMI secondary to coronary vasospasm/cardiac microvascular disease
Dyslipidemia
Essential hypertension
Former smoker
Plan:
Persistent paresthesia involving right side of the face, right upper and lower extremity started about 2 days prior to presentation.
Differential diagnosis left-sided TIA versus evolving CVA, atypical migraine, demyelinating process
No focal motor deficits.
CT head with no acute abnormalities.
ECG normal sinus rhythm.
Normotensive upon presentation
MRI of the brain pending.
Continue neurologic monitoring.
Neurology consultation.
Reports daily aspirin prior to admission with no addition of Plavix.
Had been on statin (LDL 58)
Hemoglobin A1c pending
Recent episode of chest discomfort with unrevealing workup including CTA negative for PE or parenchymal abnormalities.
Empirically treated with prednisone currently off
Thyroid nodule with normal TFTs
Outpatient follow-up with biopsy
Elevated beta-hCG in postmenopausal woman.
Follow-up with [employer], repeat levels
Prior history of non-Q wave WA presumed to be secondary to coronary vasospasm.
Continue aspirin and statin.
Essential hypertension, normotensive on amlodipine.
Anticipated Discharge: Within 24 hours
Subjective/Interval History
-
Date of Service: December 18, 2024
Objective Data
-
Vital Signs:
Vital Signs
Temp Pulse Resp BP Pulse Ox
98.8 F 58 17 115/75 99
12/18/24 08:19 12/18/24 08:19 12/18/24 08:19 12/18/24 08:19 12/18/24 08:19
I&O
12/17/24 12/18/24 12/19/24
06:59 06:59 06:59
Intake Total 240 / 240
Balance 240 / 240
Physical Exam
-
General: Well Developed and No Apparent Distress
HEENT: Normocephalic, Atraumatic and Moist Mucous Membranes
Respiratory: Clear to Auscultation
Cardiac: Regular Rhythm and S1/S2; Negative Murmur, Rub or Gallop
GI: Soft, Nontender, Nondistended and Normal Bowel Sounds; Negative Organomegaly
Rectal: Deferred by Provider
Musculoskeletal: No Clubbing, No Cyanosis and No Edema
Skin: Negative Rash
Neuro: Nonfocal/Grossly Intact
[2024-12-18] MEDS: LIPITOR 40 MG PO (09:56)
[2024-12-18] MEDS: PLAVIX 75 MG PO (09:56)
[2024-12-18] MEDS: NORVASC 2.5 MG PO (09:56)
[2024-12-18] MEDS: ASPIR LOW (ENTERIC COATED) 81 MG PO (09:56)
[2024-12-18 10:21] LABS: Glycohemoglobin (HgbA1c) 5.6 % (4.0-5.6)
--- NOTE | 2024-12-18 10:37 | PTOTSP ---
Speech Therapy Assessment
Speech, language and swallowing deemed within functional limits.
Recommend
1. Regular solids and thin liquids.
2. No further skilled ST indicated at this time.
[2024-12-18 10:38] LABS: Lyme Antibody Screen, EIA Negative (Negative)
[2024-12-18 11:30] LABS: TSH 1.19 uIU/ml (0.47-4.68)
--- NOTE | 2024-12-18 11:56 | CM ---
Addendum entered by Swapna Ontiveros 12/18/24 15:27:
PT/OT/ST evals - no needs
PLAN: Home, no needs
to transport
Addendum entered by Swapna Ontiveros 12/18/24 14:05:
OBS form explained & signed. left in binder
Original Note:
Patient seen at bedside
Dx: TIA
MRI completed
OBS status
IA completed
CM consult completed
Lives with spouse in a 2 story home, 1 step to enter, flight stairs to bed/bathroom, has powder room 1st floor
PLOF: Independent
Denies DME
Denies VN/Rehab
PCP: Angeles Fatima
Pharmacy: [address], [place]
PLAN: Home, no needs anticipated
to transport
--- NOTE | 2024-12-18 14:24 | W.DS.TRANS ---
DC Summary - Supervisor Public Message Service
-
Discharge Instructions:
Discharge Diagnosis/Procedures Unilateral paresthesia without unrevealing
workup
Diet Regular
Blood Work Repeat HCG in two weeks
Others Tests MRI of C-spine
Instructions:
Stand-Alone Forms:
Changes to Home Medications: No
Discharge Medications:
DC Medications w/original date entered in [facility]
amlodipine 2.5 mg tablet 2.5 mg PO DAILY 12/17/24
aspirin 81 mg tablet 81 mg PO DAILY 12/17/24
atorvastatin 40 mg tablet 40 mg PO DAILY 12/17/24
Home Medication Changes
Pending Results: Yes
Additional Pending Results:
B12/folate level
[2024-12-18 16:51] LABS: Folate 17.4 ng/ml (2.76-20); Vitamin B12 389 pg/ml (239-931)
== END 2024-12-18 16:02 | disposition home or self-care (01) ==
LOC: 1 ACUTE 01:20
PROVIDERS: Emergency Medicine; Registered Nurse; ADMITTING PHYSICIAN Hospitalist; ATTENDING PHYSICIAN Internal Medicine; CONSULT PHYSICIAN Psychiatry & Neurology Neurology; EMERGENCY PHYSICIAN Emergency Medicine; FAMILY PHYSICIAN Student in an Organized Health Care Education/Training Program
DX: R20.2 Paresthesia of skin (principal); I25.2 Old myocardial infarction; R53.83 Other fatigue; F17.210 Nicotine dependence, cigarettes, uncomplicated; I10 Essential (primary) hypertension; Z79.82 Long term (current) use of aspirin; E78.5 Hyperlipidemia, unspecified; E04.1 Nontoxic single thyroid nodule; Z79.02 Long term (current) use of antithrombotics/antiplatelets
CPT/HCPCS: 29105; 70450; 70551; 80053; 80061; 81003; 81015; 82607; 82746; 83036; 83690; 84443; 84484; 84702; 84703; 85025; 86618; 87077; 87086; 87147; 92523; 92610; 93005; 96374; 97162; 97166; 99285; 99406

== ENCOUNTER → 2024-12-30 14:10 | Outpatient (REF) | payer OTHER, SELFPAY | LOC: RCS 14:10 | PROVIDERS: ATTENDING PHYSICIAN Internal Medicine Cardiovascular Disease; FAMILY PHYSICIAN Student in an Organized Health Care Education/Training Program | DX: R07.2 Precordial pain (principal); I25.2 Old myocardial infarction | CPT/HCPCS: 93017; 93350 ==

== ENCOUNTER → 2025-03-11 10:31 | Outpatient (REF) | payer OTHER, SELFPAY ==
[2025-03-11 10:59] VITALS: BP 115/80; BP_SYST 64
== END ==
LOC: RADI 10:31
PROVIDERS: ATTENDING PHYSICIAN Otolaryngology Facial Plastic Surgery; FAMILY PHYSICIAN Student in an Organized Health Care Education/Training Program
DX: E04.1 Nontoxic single thyroid nodule (principal)
CPT/HCPCS: 10005; 88173

== ENCOUNTER 2025-07-16 06:32 | Day surgery (SDC) | payer OTHER, SELFPAY ==
[2025-06-29 09:04] LABS: Hematocrit 38.3 % (37.0-47.0); Hemoglobin 12.7 g/dL (12.0-16.0); Mean Corp Hgb Conc. 33.2 g/dL (33.0-37.0); Mean Corpuscular Volume 92.7 fL (81.0-99.0); Platelet Count 258 10^3/uL (130-400); Red Cell Dist. Width 12.8 % (11.5-14.5)
[2025-06-29 09:33] LABS: ALT (SGPT) 15 U/L (0-35); AST (SGOT) 22 U/L (14-36); Albumin 4.5 g/dl (3.5-5.0); Alkaline Phosphatase 41 U/L (38-126); Blood Urea Nitrogen 21 mg/dl (7-17); Calcium 9.3 mg/dl (8.4-10.2); Carbon Dioxide 28 mmol/L (22-30); Chloride 103 mmol/L (98-107); Glucose 90 mg/dl (70-99); Potassium 4.3 mmol/L (3.5-5.1); Sodium 138 mmol/L (135-145); Total Protein 7.2 g/dl (6.3-8.2); eGFR > 60.00
[2025-06-29 13:37] VITALS: BMI 24.2
[2025-07-16] VITALS (10 sets, daily range): BP systolic 96–126; BP diastolic 58–79; BMI 24.2
[2025-07-16] MEDS: NORMOSOL-R/PLASMALYTE-A 1000 IV (10:20)
[2025-07-16] MEDS: DILAUDID 0.5 MG IV ×2 (16:27→16:41)
[2025-07-16] MEDS: ZOFRAN 4 MG IV (16:27)
[2025-07-16] MEDS: LR 1000 IV (17:38)
--- NOTE | 2025-07-16 18:28 | PTCARENOTE ---
Pt arrived 1730 from PACU. Pt AAOX3. VSS. Dressing on neck C/D/I. Oriented to room and call morris. Bed locked and in lowest position. at bedside
[2025-07-16] MEDS: MORPHINE SULFATE 2 MG IV (19:40)
[2025-07-17] MEDS: TYLENOL 650 MG PO (00:42)
[2025-07-17 03:00] VITALS: BP 92/61
[2025-07-17] MEDS: LR 1000 IV (06:05)
[2025-07-17 06:52] LABS: Calcium 8.2 mg/dl (8.4-10.2)
[2025-07-17 07:35] VITALS: BP 122/74
--- NOTE | 2025-07-17 08:11 | W.PN.ENT ---
Today's Communication
-
seen at bedside
Impression / Plan
-
doing well 1 day s/p total thyroidectomy
calcium mildly decreased
will give calcium 100 mg bid and Calcitriol 0.25mcg bid
will discharge to home
follow up in 5 days in office
will check calcium level early next week
Subjective Data
-
pt doing well 1 day s/p total thyroidectomy
taking pos
Objective Data
-
Vital Signs
Temp Pulse Resp BP Pulse Ox
98.4 F 65 17 92/61 97
07/17/25 03:00 07/17/25 03:00 07/17/25 03:00 07/17/25 03:00 07/17/25 03:00
Intake & Output
07/16/25 07/17/25 07/18/25
06:59 06:59 06:59
Intake:
Oral fluids 360 / 360 480 / 480
IV fluids (Total) 180 / 180
Normosol 100 / 100
IV piggybacks 960 / 960
Output:
Urine, Voided 425 / 425
Other:
Number of approximated MODERATE 2
amounts of urine
Number of approximated LARGE 1
amounts of urine
Lab Results
06/29/25 06:41
06/29/25 06:41
Calcium 8.2 mg/dl (8.4-10.2) L 07/17/25 05:15
Total Bilirubin 0.6 mg/dl (0.2-1.3) 06/29/25 06:41
AST 22 U/L (14-36) 06/29/25 06:41
ALT 15 U/L (0-35) 06/29/25 06:41
Alkaline Phosphatase 41 U/L (38-126) 06/29/25 06:41
wound looks good
minimal discharge
drain in place
calcium level 8.2
Physical Exam
-
wound looks good
minimal discharge
Chest: Clear
Respiratory: Clear
Data Reviewed
-
Radiology Results: Report Reviewed
[2025-07-17] MEDS: PERCOCET 5/325 1 TABLET PO (08:21)
--- NOTE | 2025-07-17 08:38 | CM ---
Cm reviewed medical records. Plan for discharge to home with no needs. Patient is medically ready for discharge.
PLAN: home no needs.
--- NOTE | 2025-07-20 18:48 | W.DS.TRANS ---
DC Summary - [employer]
-
Discharge Instructions:
Sleep Apnea Risk Low
Discharge Diagnosis/Procedures thyroid mass/suspicious nodule
Diet As tolerated
Activity No strenuous activity
Additional Activity avoid turning neck forcefully
Driving Restrictions Not until seen by your Dr
Bathing Restrictions OK to bath/shower 07/18
Blood Work will order calcium level at [facility] next week
Wound Care change dressing as needed
Instructions:
Stand-Alone Forms:
Changes to Home Medications: No
Discharge Medications:
DC Medications w/original date entered in [facility]
magnesium 250 mg tablet 240 mg PO DAILY 03/11/25
mecobalamin (vitamin B12) 1,000 mcg chewable tablet (B12 Active) 1,000 mcg PO DAILY 03/11/25
vitamin K2 100 mcg capsule 200 mcg PO DAILY 03/11/25
ascorbic acid (vitamin C) 500 mg tablet (Vitamin C) 500 mg PO DAILY 07/09/25
omega-3 fatty acids-fish oil 684 mg-1,200 mg capsule,delayed release 1 cap PO DAILY 07/09/25
zinc 1 dose PO DAILY 07/09/25
Home Medication Changes
Pending Results: No
Additional Pending Results:
will repeat serum calcium level 07/21
Total time spent discharging patient (in min): 40
== END 2025-07-17 11:01 | disposition home or self-care (01) ==
LOC: SDS 06:32
PROVIDERS: ATTENDING PHYSICIAN Otolaryngology Facial Plastic Surgery; FAMILY PHYSICIAN Physician Assistant Medical
DX: C73 Malignant neoplasm of thyroid gland (principal); E04.1 Nontoxic single thyroid nodule
CPT/HCPCS: 60240; 80053; 82310; 85027; 88307